=== PATIENT | female | born 1970 | race African-American/Black ===

== ENCOUNTER 2019-06-06 01:10 | Emergency (ER) | payer SELFPAY ==
[~2019-06-06] VITALS: Ht 147.3 cm; Wt 74.8 kg
--- NOTE | 2019-06-06 01:35 | NUR ---
DR MIRELES AT BEDSIDE FOR MSE.
--- NOTE | 2019-06-06 01:53 | NUR ---
Patient discharged to home in stable conditon. Written and verbal after care instructions given. Patient verbalizes understanding of instructions. Pt walked out of ER with stable gait. All belongings with pt.
[2019-06-06 01:54] VITALS: BP 120/75
== END 2019-06-06 01:59 | disposition home or self-care (01) ==
LOC: ER 01:14
DX: R05 Cough (principal); Z88.8 Allergy status to other drugs, medicaments and biological substances
CPT/HCPCS: 71045; A4663